=== PATIENT | male | born 1965 | race Caucasian/White ===

== ENCOUNTER → 2017-07-07 | Day surgery (SDC) | payer BC ==
[~2017-07-07] MED LIST: BC POWDER PACK1 EAC1 PO; BUPIVACAINE HCL 0.5% INJ 30 ML VIAL INJ ONE; CEFAZOLIN SOD 1 GM/NS 50ML 50 ML IV ONE; DEXAMETHASONE SOD PHOS INJ 4 MG/ML VIAL ONE; FENTANYL CITRATE/PF 100MCG/2 ML INJ ONE; LIDOCAINE HCL 2% LOCAL INJ 5 ML SDV VIAL INJ ONE; MIDAZOLAM HCL 2 MG/2 ML VIAL ONE; ONDANSETRON HCL INJ 2 MG/ML VIAL ONE; PROPOFOL IV EMULSION 10 MG/ML 20 ML VIAL ONE; SEVOFLURANE INHAL SOLN 250 ML PEN BTL ONE
--- NOTE | 2017-07-07 13:19 | Operative Report ---
DATE OF PROCEDURE: July 07, 2017 PREOPERATIVE DIAGNOSIS: Bilateral carpal tunnel syndrome. POSTOPERATIVE DIAGNOSIS 1. Bilateral carpal tunnel syndrome. 2. Flexor tenosynovitis bilateral wrists. PROCEDURES 1. Bilateral open carpal tunnel release. 2. Flexor tenosynovectomy bilateral wrists. ANESTHESIA:General. HISTORY: The patient is a 51-year-old male with EMG-proven bilateral carpal tunnel syndrome. Risks, benefits and alternatives of treatment were discussed with the patient. The patient is prepared to undergo the procedure as outlined. PROCEDURE: The patient was brought to the operating theater. After the induction of adequate general inhalation anesthesia, the patient was prepped and draped in the supine position. A time out was performed by the entire operating room team. A 2.5-cm incision was marked out in the intrathenar space. The right upper extremity was exsanguinated and a tourniquet was inflated to a pressure of 250 mmHg. The incision was made through the skin and subcutaneous tissues and all venous tributaries were controlled with bipolar cautery. The incision was deepened through the palmar fascia until the transverse carpal ligament was identified. The ligament was sharply sectioned, taking care to protect and preserve the median nerve underlying it. After the complete width of the ligament had been transected, the distal volar forearm fascia was divided under direct view. Proliferative flexor tenosynovium was noticed to encompass the median nerve and this was radically excised. After performing this maneuver, the nerve was noted to lie adequately decompressed. The wound was copiously irrigated with bacteriostatic saline, closed with 5-0 nylon in an interrupted horizontal mattress fashion. A Marcaine field block was performed at the operative site. Tourniquet was deflated. All of the fingers pinked up nicely and a sterile bulking conforming bandage was applied to the hand and the wrist. A fiberglass splint was fashioned to maintain the wrist in a modest amount of extension. This was held in place with a loosely wrapped Torito wrap. A 2.5-cm incision was marked out in the intrathenar space. The left upper extremity was exsanguinated and a tourniquet was inflated to a pressure of 250 mmHg. The incision was made through the skin and subcutaneous tissues and all venous tributaries were controlled with bipolar cautery. The incision was deepened through the palmar fascia until the transverse carpal ligament was identified. The ligament was sharply sectioned, taking care to protect and preserve the median nerve underlying it. After the complete width of the ligament had been transected, the distal volar forearm fascia was divided under direct view. Proliferative flexor tenosynovium was noticed to encompass the median nerve and this was radically excised. After performing this maneuver, the nerve was noted to lie adequately decompressed. The wound was copiously irrigated with bacteriostatic saline, closed with 5-0 nylon in an interrupted horizontal mattress fashion. A Marcaine field block was performed at the operative site. Tourniquet was deflated. All of the fingers pinked up nicely and a sterile bulking conforming bandage was applied to the hand and the wrist. A fiberglass splint was fashioned to maintain the wrist in a modest amount of extension. This was held in place with a loosely wrapped Torito wrap. The patient tolerated the procedure well and was brought to the recovery room in satisfactory condition and discharged with a postoperative instruction sheet as well as a followup appointment. Job#: [id number] [place]
== END | disposition home or self-care (01) ==
LOC: OR 05:32
PROVIDERS: ATTEND Plastic Surgery
DX: G56.02 Carpal tunnel syndrome, left upper limb (principal); M65.842 Other synovitis and tenosynovitis, left hand; G56.01 Carpal tunnel syndrome, right upper limb; M65.841 Other synovitis and tenosynovitis, right hand
CPT/HCPCS: 25115; 93005; J1100; J2001; J2250; J2405

== ENCOUNTER 2017-07-20 17:09 | Emergency (ER) | payer BC ==
[~2017-07-20] VITALS: Ht 167.6 cm; Wt 93.9 kg
[~2017-07-20 17:09] MED LIST changes: -BUPIVACAINE HCL 0.5% INJ 30 ML VIAL INJ ONE; -CEFAZOLIN SOD 1 GM/NS 50ML 50 ML IV ONE; -DEXAMETHASONE SOD PHOS INJ 4 MG/ML VIAL ONE; -FENTANYL CITRATE/PF 100MCG/2 ML INJ ONE; -LIDOCAINE HCL 2% LOCAL INJ 5 ML SDV VIAL INJ ONE; -MIDAZOLAM HCL 2 MG/2 ML VIAL ONE; -ONDANSETRON HCL INJ 2 MG/ML VIAL ONE; -PROPOFOL IV EMULSION 10 MG/ML 20 ML VIAL ONE; -SEVOFLURANE INHAL SOLN 250 ML PEN BTL ONE
== END 2017-07-20 19:30 | disposition left against medical advice (07) ==
LOC: ER 17:09
DX: R20.0 Anesthesia of skin (principal)

== ENCOUNTER → 2017-07-22 | Outpatient (CLI) | payer BC | LOC: RAD 08:35 | PROVIDERS: ATTEND Plastic Surgery | DX: M79.602 Pain in left arm (principal); M79.601 Pain in right arm | CPT/HCPCS: 93970 ==

== ENCOUNTER → 2017-09-15 | Outpatient (CLI) | payer BC ==
[~2017-09-15] MED LIST changes: +ACETAMINOPHEN/CODEINE 300MG - 30MG TAB ONE; +IOPAMIDOL 300 MG/ML 15ML VIAL IT ONE; +LIDOCAINE HCL 1% LOCAL INJ 20 ML VIAL ONE
--- NOTE | 2017-09-15 12:38 | Diagnostic Imaging Report ---
Fluoroscopically-guided myelogram 09/15/2017 Pre-Procedure Diagnosis: Cervical disc disorder with radiculopathy; low back pain Post-procedure Diagnosis:Cervical disc disorder with radiculopathy; low back pain Diathermy Equipment Repairer: Josr Swann Gas Combustion Engineer: None Sedation: None. 1% lidocaine local anesthesia. Radiation Dose:104.57 mGy (cumulative air kerma) Fluoroscopy time:0.7 minutes Estimate blood loss: None. Blood administered: None Complications: None Implants/Grafts: None Specimen: None. Procedure: Informed consent was obtained and the patient placed prone after pants maker radiographs were obtained. A timeout was performed. The back was prepped and draped in standard sterile fashion. Using fluoroscopic guidance a 22-gauge spinal needle was advanced into the thecal sac at the L4-L5 level. Clear, colorless CSF was returned. 15 mL Isoview 300-M was injected into the thecal sac. Images of the cervical and lumbar spine were obtained in multiple planes. The needle was removed and a sterile dressing applied. Findings: Health And Physical Education Teacher radiograph: 5 nonrib-bearing lumbar vertebral bodies. Please see the CT of the same date for myelogram findings. Impression: Successful fluoroscopically-guided myelogram. This report was generated with voice-recognition technology. Errors in cupola tapper helper can occur. Please interpret accordingly and contact a radiologist if there are any questions regarding the report. Signed by: Dr. James Swann M.D. on 09/15/2017 12:34 PM
--- NOTE | 2017-09-16 10:40 | Diagnostic Imaging Report ---
CT MYELOGRAM OF THE CERVICAL AND LUMBAR SPINE History: Left arm pain, lower back pain Comparison studies:Preceding myelogram. Technique: Axial images were obtained through the lumbar region. Coronal and sagittal images reconstructed from the axial data. Intrathecal contrast: See myelogram report. Findings: Number of non-rib bearing lumbar vertebral bodies: 5. Alignment: Normal lordosis of the cervical and lumbar spine. No scoliosis. . Soft tissues: No abnormalities . Paraspinal muscles: Unremarkable Lower thoracic spinal cord: Well-visualized. The tip of the conus is at L1-L2. Sacroiliac joints: No abnormalities. Vertebrae: No fractures, infection or neoplasm. Posterior fusion defect incidentally noted at C1 Degenerative changes: Cervical: C2-3: No abnormalities. C3-4: No abnormalities. C4-5: No abnormalities. C5-6: Mild disc degeneration with decreased intervertebral space. Right central disc osteophyte complex results in mild canal stenosis without significant foraminal narrowing.. C6-7: Disc degeneration with decreased intervertebral space. Central disc osteophyte complex and bilateral facet hypertrophy results in mild canal stenosis and mild bilateral foraminal narrowing C7-T1: No abnormalities. Lumbar: L1-L2: No abnormalities L2-L3: No abnormalities L3-L4: Mild diffuse disc bulge, mild facet hypertrophy and mild ligamentum flavum thickening results in mild canal stenosis and moderate left foraminal narrowing L4-L5: Mild diffuse disc bulge results in mild canal stenosis and mild left foraminal narrowing. L5-S1: No abnormalities IMPRESSION: CT cervical myelogram: 1. Central disc osteophyte complexes at C5-6 and C6-7 results in mild central canal stenosis. 2. Bilateral uncinate process hypertrophy at C6-7 results in mild bilateral foraminal narrowing CT lumbar myelogram: 1. Mild canal stenosis and moderate left foraminal narrowing at L3-L4 secondary to diffuse disc bulge and mild posterior hypertrophy. 2. Canal stenosis and mild left foraminal narrowing at L4-L5 secondary to degenerative changes. Signed by: DR Pan Bai M.D. on 09/16/2017 10:36 AM
== END ==
LOC: DX 10:13
PROVIDERS: ATTEND Neurological Surgery
DX: M50.120 Mid-cervical disc disorder, unspecified level (principal); M48.062 Spinal stenosis, lumbar region with neurogenic claudication
CPT/HCPCS: 62305; 72126; 72132; Q9967; J2001

== ENCOUNTER 2017-09-29 14:30 | Outpatient (RCR) | payer BC ==
[~2017-09-29 14:30] MED LIST changes: -ACETAMINOPHEN/CODEINE 300MG - 30MG TAB ONE; -IOPAMIDOL 300 MG/ML 15ML VIAL IT ONE; -LIDOCAINE HCL 1% LOCAL INJ 20 ML VIAL ONE
== END 2017-10-08 ==
LOC: OT 14:30
PROVIDERS: ATTEND Neurological Surgery
DX: G56.02 Carpal tunnel syndrome, left upper limb (principal)

== ENCOUNTER 2017-10-24 13:41 | Outpatient (RCR) | payer BC | END 2017-11-07 | LOC: OT 13:41 | PROVIDERS: ATTEND Neurological Surgery | DX: G56.02 Carpal tunnel syndrome, left upper limb (principal); R20.9 Unspecified disturbances of skin sensation ==

== ENCOUNTER → 2020-08-14 | Day surgery (SDC) | payer BC ==
[~2020-08-14] MED LIST changes: +BUPIVACAINE 0.25% 30ML SDV ONE; +CEFAZOLIN SOD 1 GM/NS 50ML 50 ML IV ONE; +FENTANYL CITRATE/PF 100MCG/2 ML INJ ONE; +KETOROLAC TROMETHAMINE 30 MG/ML VIAL ONE; +MIDAZOLAM HCL 2 MG/2 ML VIAL ONE; +MUPIROCIN 2% OINT 22 GM TUBE ONE; +ONDANSETRON HCL INJ 2MG/ML 2ML 2 MG/ML VIAL ONE; +PANTOPRAZOLE SO40 MG PO; +ROPINIROLE HCL1 MG PO; +VICODIN HP 10-1 EAC1 PO
[2020-08-14 10:20] VITALS: BP 111/68
== END | disposition home or self-care (01) ==
LOC: OR 06:19
PROVIDERS: ATTEND Plastic Surgery
DX: G56.02 Carpal tunnel syndrome, left upper limb (principal); Z01.810 Encounter for preprocedural cardiovascular examination; Z01.812 Encounter for preprocedural laboratory examination; Z20.822 Contact with and (suspected) exposure to COVID-19
CPT/HCPCS: 25115; 64999; 93005; C9353; J0690; J1885; J2405; U0002; J2250; J3010